=== PATIENT | female | born 1970 | race Caucasian/White ===

== ENCOUNTER 2016-06-18 10:47 | Inpatient (IN) | payer OTHER ==
[~2016-06-18] VITALS: Ht 170.2 cm; Wt 99.1 kg
[2016-06-18] MEDS ORDERED: ONDANSETRON 2MG/ML, 2ML IVPush ONE ×2 (11:30→14:30)
[2016-06-18] MEDS ORDERED: ASPIRIN 81 MG TABLET CHEW PO ONE (11:30)
[2016-06-18] MEDS ORDERED: SODIUM CHLORIDE FLUSH 10ML SYR IVF ONE (11:30)
[2016-06-18 11:53] LABS: HEMOGLOBIN 12.6 g/dL (11.7-16.4)
[2016-06-18 12:06] LABS: BLOOD UREA NITROGEN 12 mg/dL (7-18)
[2016-06-18 12:15] LABS: IS PT STATUS REG ER OR PRE ER? YES
[2016-06-18] MEDS ORDERED: ASPIRIN 81 MG TABLET CHEW ONE (12:49)
[2016-06-18] MEDS ORDERED: ONDANSETRON 2MG/ML, 2ML ONE ×2 (12:49→14:19)
[2016-06-18] MEDS ORDERED: OMNIPAQUE 350 MG/ML, 100ML BOTTLE ONE ×2 (13:24→13:39)
[2016-06-18] MEDS ORDERED: MORPHINE SULFATE 4 MG/ML, 1ML ONE (14:19)
[2016-06-18] MEDS ORDERED: DIAZ5TAB4 PO (14:24)
[2016-06-18] MEDS ORDERED: ASPI-515 PO (14:24)
[2016-06-18] MEDS ORDERED: LISI1TAB3 PO (14:24)
[2016-06-18] MEDS ORDERED: HYDR-3307 PO (14:24)
[2016-06-18] MEDS ORDERED: MORPHINE SULFATE 4 MG/ML, 1ML IVPush ONE (14:30)
[2016-06-18 16:35] VITALS: BP 135/66
[2016-06-18 16:42] VITALS: BP 135/70
[2016-06-18] MEDS: ALUMINUM/MAG/SIMETHICONE 30 ML UDC PO PRN ×2 (17:20→17:21)
[2016-06-18] MEDS ORDERED: ONDANSETRON 2MG/ML, 2ML IVP PRN (18:30)
[2016-06-18] MEDS ORDERED: MORPHINE SULFATE 4 MG/ML, 1ML IVPush PRN (18:30)
[2016-06-18] MEDS ORDERED: BISACODYL 10 MG SUPP PR PRN (18:30)
[2016-06-18] MEDS ORDERED: NITROGLYCERIN 0.4 MG BOTTLE (25 TABS) SL PRN (18:30)
[2016-06-18] MEDS ORDERED: POLYETHYLENE GLYCOL 17 GM PACKET PO PRN (18:30)
[2016-06-18 18:44] LABS: IS PT STATUS REG ER OR PRE ER? NO
[2016-06-18 19:47] VITALS: BP 144/80
[2016-06-18] MEDS: SUCRALFATE 1 GM/10 ML UDC PO SCH (21:10)
[2016-06-18] MEDS: ACETAMINOPHEN 325 MG TABLET PO PRN (21:10)
[2016-06-18] MEDS: DIAZEPAM 5 MG TABLET PO SCH (21:10)
[2016-06-18] MEDS: HEPARIN 5,000 UNITS/ML, 1ML SQ SCH (21:12)
[2016-06-18] MEDS: FAMOTIDINE 20 MG/2 ML IV SCH (21:12)
[2016-06-19 00:46] LABS: IS PT STATUS REG ER OR PRE ER? NO
[2016-06-19 02:30] VITALS: BP 138/81
[2016-06-19] MEDS: HYDROcodone/APAP 10/325 MG TABLET PO SCH ×3 (03:17→11:33)
[2016-06-19] MEDS: HEPARIN 5,000 UNITS/ML, 1ML SQ SCH ×2 (05:04→13:55)
[2016-06-19 06:23] LABS: HEMOGLOBIN 11.9 g/dL (11.7-16.4)
[2016-06-19 06:36] LABS: BLOOD UREA NITROGEN 11 mg/dL (7-18)
[2016-06-19 06:40] LABS: ASPARTATE AMINO TRANSFERASE 31 U/L (15-37)
[2016-06-19 06:41] VITALS: BP 105/71
[2016-06-19] MEDS: ACETAMINOPHEN 325 MG TABLET PO PRN (07:09)
[2016-06-19] MEDS ORDERED: LISINOPRIL 10 MG TABLET PO SCH (09:00)
[2016-06-19] MEDS ORDERED: SENNA/DOCUSATE TABLET PO SCH (09:00)
[2016-06-19] MEDS ORDERED: ASPIRIN 81 MG TABLET EC PO SCH (09:00)
[2016-06-19] MEDS ORDERED: HYDROCHLOROTHIAZIDE 12.5 MG CAPSULE PO SCH (09:00)
[2016-06-19] MEDS: FAMOTIDINE 20 MG/2 ML IV SCH (09:09)
[2016-06-19] MEDS: SUCRALFATE 1 GM/10 ML UDC PO SCH ×2 (09:09→11:28)
[2016-06-19] MEDS: DIAZEPAM 5 MG TABLET PO SCH (09:19)
[2016-06-19 15:10] VITALS: BP 114/74
== END 2016-06-19 17:21 | disposition home or self-care (01) | DRG 392 ==
LOC: ED 13:27 → EDIP 14:11 → 5SO 15:40 → DCLOUNGE 06-19 16:57
PROVIDERS: ADMIT Internal Medicine; ATTEND Internal Medicine
PROC: 0T9B70Z Drainage of Bladder with Drainage Device, Via Natural or Artificial Opening (ICD-10-PCS; principal; 2016-06-18)
DX: K29.20 Alcoholic gastritis without bleeding (principal); I50.20 Unspecified systolic (congestive) heart failure; E44.0 Moderate protein-calorie malnutrition; I10 Essential (primary) hypertension; E66.9 Obesity, unspecified; Z82.49 Family history of ischemic heart disease and other diseases of the circulatory system; Z83.3 Family history of diabetes mellitus; Z90.49 Acquired absence of other specified parts of digestive tract; Z90.710 Acquired absence of both cervix and uterus; Z88.1 Allergy status to other antibiotic agents; Z88.0 Allergy status to penicillin; Z82.0 Family history of epilepsy and other diseases of the nervous system; Z68.34 Body mass index [BMI] 34.0-34.9, adult
CPT/HCPCS: 36415; 71010; 71275; 80048; 80053; 80061; 81003; 82040; 83690; 83880; 84439; 84443; 84484; 85025; 93005; 93306; 93970; 96374; 96375; J1644; J2405; Q9967; S0028